=== PATIENT | male | born 1985 | race Caucasian/White ===

== ENCOUNTER 2023-07-08 20:48 | Inpatient (IN) | payer BC ==
[~2023-07-08] VITALS: Ht 175.3 cm; Wt 71.9 kg
[2023-07-08 22:30] VITALS: BP 162/80; PULSE 92; RESP 25
[2023-07-08 22:35] VITALS: O2SAT 100
[2023-07-08 23:13] VITALS: BP 138/88; PULSE 92; RESP 25
[2023-07-08 23:21] LABS: HEMATOCRIT 41.3 % (42-54); IMMATURE GRANULOCYTE ABSOLUTE 0.02 K/uL (0-1); LYMPHOCYTES # (AUTO) 0.4 K/uL (1.0-4.8); LYMPHOCYTES % (AUTO) 9.9 % (21.0-51.0); MEAN CORPUSCULAR HEMOGLOBIN 35.1 pg (27.0-33.0); MEAN CORPUSCULAR HGB CONC 35.6 g/dL (32.0-36.0); MEAN CORPUSCULAR VOLUME 98.6 fL (79-99); MONOCYTES # (AUTO) 0.3 K/uL (0.1-1.0); MONOCYTES % (AUTO) 7.4 % (3.0-13.0); NEUTROPHILS # (AUTO) 3.3 K/uL (1.8-7.7); NEUTROPHILS % (AUTO) 82.2 % (40.0-77.0); PLATELET COUNT (AUTO) 114 K/uL (130-400); RED BLOOD CELL COUNT(AUTO) 4.19 MIL/uL (4.50-6.20); RED CELL DISTRIBUTION WIDTH 12.8 % (11.0-15.5); WHITE BLOOD COUNT (AUTO) 4.1 K/uL (4.8-10.8)
[2023-07-08 23:28] VITALS: BP 149/85; PULSE 94; RESP 30
[2023-07-08] MEDS ORDERED: MANNITOL 20% 500 ML IV.SOLN IV SCH (23:30)
[2023-07-08] MEDS ORDERED: INSULIN REGULAR, HUMAN 3ML 100 UNIT in 0.9%NACL 100ML 100 ML IV SCH ×2 (23:30)
[2023-07-08] MEDS ORDERED: MAGNESIUM 2GM PREMIX 50ML 50 ML IV SCH (23:30)
[2023-07-08] MEDS ORDERED: ACETAMINOPHEN 325 MG TAB PO PRN ×2 (23:30)
[2023-07-08] MEDS ORDERED: ONDANSETRON 4MG INJ IV PRN (23:30)
[2023-07-08] MEDS ORDERED: MORPHINE 4 MG SYG IV PRN (23:30)
[2023-07-08] MEDS ORDERED: 0.9%NACL 1000ML 1,000 ML IV SCH (23:30)
[2023-07-08] MEDS ORDERED: MORPHINE 2 MG SYG IV PRN (23:30)
[2023-07-08 23:34] LABS: HEMOGLOBIN A1C 8.2 % (4.0-6.0)
[2023-07-08 23:39] LABS: WBC MORPHOLOGY CONSISTENT W/DIFF
[2023-07-08 23:47] LABS: ALBUMIN 3.3 g/dL (3.5-5.0); BILIRUBIN,TOTAL 5.4 mg/dL (0.2-1.0); CREATININE 3.3 mg/dL (0.5-1.5); MAGNESIUM 1.9 mg/dL (1.80-2.40); POTASSIUM 4.7 mmol/L (3.5-5.1); TOTAL PROTEIN, SERUM 6.4 g/dL (6.0-8.3)
[2023-07-08 23:51] LABS: INR 0.95 (0.85-1.15); PROTHROMBIN TIME 11.1 SEC (9.6-11.6)
[2023-07-08 23:52] LABS: PARTIAL THROMBOPLASTIN TIME 26.4 SEC (26.3-35.5)
[2023-07-09] VITALS (80 sets, daily range): BP systolic 115–172; BP diastolic 66–146; PULSE 72–112; RESP 12–42; O2SAT 97–100
[2023-07-09] MEDS: D5W-1/2 NS/20MEQ KCL 1,000 ML IV SCH ×2 (00:22→09:33)
[2023-07-09] MEDS: ALBUTEROL 0.083% 2.5 MG/3 ML INH IH ONE ×2 (00:36→00:38)
[2023-07-09] MEDS: ALBUTEROL 0.083% 2.5 MG/3 ML INH IH PRN ×3 (00:37→21:55)
[2023-07-09] MEDS ORDERED: 0.9%NACL 50ML IV SCH (02:00)
[2023-07-09 02:08] LABS: ABG BASE EXCESS -9.2 mmol/L (-2.0-3.0); ABG HCO3 13.8 mmol/L (21.0-28.0); ABG OXYGEN SATURATION 97.1 % (95.0-99.0); ABG PCO2 24 mmHg (35-48); CARBON MONOXIDE 0.5; HHb 2.9; PO2, ARTERIAL BG 92.3 mmHg (83.0-108.0); VENT MODE, BG RA (ROOM AIR)
[2023-07-09] MEDS ORDERED: 0.9%NACL 1000ML 2,121 ML IV ONE (02:30)
[2023-07-09] MEDS ORDERED: SODIUM BICARB 50MEQ 50ML VIAL IV ONE (02:30)
[2023-07-09] MEDS ORDERED: SODIUM BICARB 8.4% 50ML SYRING 0 MEQ in DEXTROSE 5%-WATER 1,000 ML IVP SCH (02:30)
[2023-07-09] MEDS ORDERED: SODIUM BICARB 50MEQ 50ML VIAL 200 ML ONE (02:39)
[2023-07-09] MEDS ORDERED: PHARMACY COMMUNICATION MISC SCH (03:00)
[2023-07-09] MEDS ORDERED: CALCIUM GLUC 1GM 1 GM in 0.9%NACL 100ML 100 ML IV SCH (03:00)
[2023-07-09] MEDS ORDERED: SOD PHOSPHATE 45 MMOL/15 ML VI 15 MMOL in 0.9% NACL 250ML 250 ML IV PRN (03:00)
[2023-07-09] MEDS ORDERED: SODIUM BICARB 8.4% 50ML SYRING 150 MEQ in DEXTROSE 5%-WATER 1,000 ML IV SCH (03:00)
[2023-07-09 03:15] LABS: HEMATOCRIT 34.1 % (42-54); IMMATURE GRANULOCYTE ABSOLUTE 0.04 K/uL (0-1); LYMPHOCYTES # (AUTO) 0.3 K/uL (1.0-4.8); LYMPHOCYTES % (AUTO) 13.7 % (21.0-51.0); MEAN CORPUSCULAR HEMOGLOBIN 35.5 pg (27.0-33.0); MEAN CORPUSCULAR VOLUME 96.1 fL (79-99); MONOCYTES # (AUTO) 0.2 K/uL (0.1-1.0); NEUTROPHILS # (AUTO) 1.6 K/uL (1.8-7.7); NEUTROPHILS % (AUTO) 75.4 % (40.0-77.0); PLATELET COUNT (AUTO) 88 K/uL (130-400); RED BLOOD CELL COUNT(AUTO) 3.55 MIL/uL (4.50-6.20); RED CELL DISTRIBUTION WIDTH 12.6 % (11.0-15.5); WHITE BLOOD COUNT (AUTO) 2.1 K/uL (4.8-10.8)
[2023-07-09 03:28] LABS: CREATININE 3.1 mg/dL (0.5-1.5); POTASSIUM 3.7 mmol/L (3.5-5.1)
[2023-07-09] MEDS: ZOSYN 3.375GM +NS 50ML IVPB SCH ×3 (03:36→18:40)
[2023-07-09 03:58] LABS: BAND NEUTROPHILS % (MANUAL) 11 % (0-2); LYMPHOCYTES % (MANUAL) 8 % (22-44); MAN.DIFF COMMENT-IMPRESSION MANUAL DIFFERENTIAL; MONOCYTES % (MANUAL) 5 % (2-9); PLATELET MORPHOLOGY COMMENT DECREASED; SEGMENTED NEUTROPHILS % 76 % (40-70); TOTAL CELLS COUNTED 100; WBC MORPHOLOGY CONSISTENT W/DIFF
[2023-07-09] MEDS ORDERED: SODIUM BICARB 50MEQ 50ML VIAL 50 ML ONE (04:54)
[2023-07-09 06:58] LABS: ABG BASE EXCESS -1.1 mmol/L (-2.0-3.0); ABG HCO3 21.7 mmol/L (21.0-28.0); ABG OXYGEN SATURATION 96.6 % (95.0-99.0); ABG PCO2 31 mmHg (35-48); CARBON MONOXIDE 0.1; DEVICE COMMENT RR; HHb 3.4; PO2, ARTERIAL BG 87.4 mmHg (83.0-108.0); VENT MODE, BG RA (ROOM AIR)
[2023-07-09 07:29] LABS: CREATININE 2.6 mg/dL (0.5-1.5); POTASSIUM 3.5 mmol/L (3.5-5.1)
[2023-07-09] MEDS ORDERED: HYDROCODONE/ACETAMINOPHEN 5/325 MG TAB PO PRN (09:00)
[2023-07-09] MEDS: ENOXAPARIN SODIUM 40 MG/0.4 ML SYRINGE SQ SCH (09:31)
[2023-07-09] MEDS: AMLODIPINE 5 MG TAB PO SCH (09:32)
[2023-07-09] MEDS: HYDROCODONE/ACETAMINOPHEN 10/325 MG TAB PO PRN ×3 (09:33→21:38)
[2023-07-09] MEDS: FAMOTIDINE 20MG VIAL IV SCH ×2 (09:34→20:08)
[2023-07-09 09:49] LABS: ACETAMINOPHEN 1 mcg/mL (10-29)
[2023-07-09 09:52] LABS: SALICYLATE < 2.8 mg/dL (2.8-20.0)
[2023-07-09] MEDS ORDERED: PROP20TA96 PO (11:04)
[2023-07-09] MEDS ORDERED: MONT-39 PO (11:04)
[2023-07-09] MEDS ORDERED: TRAZ-187 PO (11:04)
[2023-07-09 11:13] LABS: CREATININE 2.3 mg/dL (0.5-1.5); POTASSIUM 3.2 mmol/L (3.5-5.1)
[2023-07-09] MEDS: INSULIN NPH 100 UNIT/ML 3ML SQ SCH ×2 (12:00→16:30)
[2023-07-09] MEDS: BENZOCAINE/MENTH/CETYLPYRD CL 1 EACH LOZENGE MM PRN ×2 (12:17→19:24)
[2023-07-09 12:40] LABS: ADD UA MICROSCOPIC YES
[2023-07-09 12:41] LABS: AMPHET/METH SCREEN,URINE NEGATIVE (NEGATIVE); BARBITURATE SCREEN, URINE NEGATIVE (NEGATIVE); BENZODIAZEPINES SCREEN,URINE NEGATIVE (NEGATIVE); CANNABINOID SCREEN,URINE POSITIVE (NEGATIVE); COCAINE SCREEN,URINE NEGATIVE (NEGATIVE); OPIATE SCREEN,URINE POSITIVE (NEGATIVE); PHENCYCLIDINE SCREEN,URINE NEGATIVE (NEGATIVE)
[2023-07-09 12:50] LABS: APPEARANCE,URINE CLEAR (CLEAR); BACTERIA,URINE RARE /HPF (None Seen); BILIRUBIN,URINE 0.5 mg/dL (NEGATIVE); COLOR,URINE YELLOW (YELLOW); GLUCOSE, URINE (UA) >=1000 mg/dL (NEGATIVE); KETONES,URINE 40 mg/dL (NEGATIVE); LEUKOCYTE ESTERASE ,URINE NEGATIVE Leu/uL (NEGATIVE); MUCUS,URINE RARE LPF (None Seen); NITRATE,URINE NEGATIVE (NEGATIVE); OCCULT BLOOD,URINE MODERATE (NEGATIVE); PROTEIN,URINE 70 mg/dL (NEGATIVE); UROBILINOGEN,URINE 0.2 mg/dL (0.2-1.0)
[2023-07-09] MEDS: POTASSIUM CHLORIDE 10MEQ/100ML 100 ML IV PRN ×2 (12:53→14:53)
[2023-07-09] MEDS: PROPRANOLOL HCL 20 MG TAB PO SCH ×2 (14:53→20:08)
[2023-07-09 14:58] LABS: CREATININE 2.1 mg/dL (0.5-1.5); POTASSIUM 3.2 mmol/L (3.5-5.1)
[2023-07-09 15:08] LABS: ALBUMIN 2.8 g/dL (3.5-5.0); BILIRUBIN,DIRECT 1.1 mg/dL (0.0-0.3); BILIRUBIN,TOTAL 1.8 mg/dL (0.2-1.0); TOTAL PROTEIN, SERUM 5.2 g/dL (6.0-8.3)
[2023-07-09] MEDS ORDERED: POTASSIUM CHLORIDE 20MEQ/100ML 100 ML IV PRN ×2 (15:30)
[2023-07-09] MEDS ORDERED: MAGNESIUM 2GM PREMIX 50ML 50 ML IV PRN (15:30)
[2023-07-09] MEDS: LACTATED RINGERS 1000ML 1,000 ML IV SCH (16:17)
[2023-07-09] MEDS: TRAZODONE HCL 100 MG TABLET PO SCH (16:30)
[2023-07-09] MEDS: KCL 20 MEQ ERTAB PO PRN (16:31)
[2023-07-09] MEDS: GUAIFENESIN-DM 200/20 MG 10 ML PO PRN (20:51)
[2023-07-10] VITALS (32 sets, daily range): BP systolic 126–158; BP diastolic 83–103; PULSE 65–100; RESP 15–22; O2SAT 97–99
[2023-07-10] MEDS: ZOSYN 3.375GM +NS 50ML IVPB SCH ×3 (01:04→17:24)
[2023-07-10] MEDS: GUAIFENESIN-DM 200/20 MG 10 ML PO PRN (01:43)
[2023-07-10] MEDS: HYDROCODONE/ACETAMINOPHEN 10/325 MG TAB PO PRN (03:14)
[2023-07-10] MEDS: LACTATED RINGERS 1000ML 1,000 ML IV SCH ×4 (03:14→18:10)
[2023-07-10 04:50] LABS: EOSINOPHILS # (AUTO) 0.17 K/uL (0.00-0.70); EOSINOPHILS % (AUTO) 7.1 % (0.0-8.0); HEMATOCRIT 32.7 % (42-54); IMMATURE GRANULOCYTE ABSOLUTE 0.01 K/uL (0-1); LYMPHOCYTES # (AUTO) 0.6 K/uL (1.0-4.8); LYMPHOCYTES % (AUTO) 23.7 % (21.0-51.0); MEAN CORPUSCULAR HEMOGLOBIN 35.5 pg (27.0-33.0); MEAN CORPUSCULAR HGB CONC 35.8 g/dL (32.0-36.0); MEAN CORPUSCULAR VOLUME 99.1 fL (79-99); MONOCYTES # (AUTO) 0.3 K/uL (0.1-1.0); MONOCYTES % (AUTO) 11.6 % (3.0-13.0); NEUTROPHILS # (AUTO) 1.4 K/uL (1.8-7.7); NEUTROPHILS % (AUTO) 57.2 % (40.0-77.0); PLATELET COUNT (AUTO) 67 K/uL (130-400); RED CELL DISTRIBUTION WIDTH 13.3 % (11.0-15.5); WHITE BLOOD COUNT (AUTO) 2.4 K/uL (4.8-10.8)
[2023-07-10 04:58] LABS: ALBUMIN 2.7 g/dL (3.5-5.0); BILIRUBIN,TOTAL 1.6 mg/dL (0.2-1.0); CREATININE 1.6 mg/dL (0.5-1.5); MAGNESIUM 1.7 mg/dL (1.80-2.40); PHOSPHORUS 1.9 mg/dL (2.5-4.9); POTASSIUM 3.1 mmol/L (3.5-5.1); TOTAL PROTEIN, SERUM 5.5 g/dL (6.0-8.3)
[2023-07-10] MEDS: KCL 20 MEQ ERTAB PO PRN (06:28)
[2023-07-10] MEDS: INSULIN NPH 100 UNIT/ML 3ML SQ SCH ×2 (06:29→16:30)
[2023-07-10] MEDS: ALBUTEROL 0.083% 2.5 MG/3 ML INH IH PRN (07:01)
[2023-07-10] MEDS: ENOXAPARIN SODIUM 40 MG/0.4 ML SYRINGE SQ SCH (09:00)
[2023-07-10 09:12] LABS: HEPATITIS A ANTIBODY IGM Negative (Negative); HEPATITIS B CORE IGM Negative (Negative); HEPATITIS Bs ANTIGEN SCREEN P Negative (Negative); HEPATITIS C VIRUS ANTIBODY Non Reactive (Non Reactive)
[2023-07-10] MEDS: PROPRANOLOL HCL 20 MG TAB PO SCH ×3 (09:59→20:14)
[2023-07-10] MEDS: FAMOTIDINE 20MG VIAL IV SCH ×2 (09:59→20:14)
[2023-07-10] MEDS ORDERED: 0.9%NACL 1000ML 2,121 ML IV ONE (10:00)
[2023-07-10] MEDS: MONTELUKAST SODIUM 10 MG TAB PO SCH (10:00)
[2023-07-10] MEDS: AMLODIPINE 5 MG TAB PO SCH (10:00)
[2023-07-10 10:26] LABS: CREATININE 1.5 mg/dL (0.5-1.5); POTASSIUM 3.5 mmol/L (3.5-5.1)
[2023-07-10 10:31] LABS: ALBUMIN 3.3 g/dL (3.5-5.0); BILIRUBIN,TOTAL 1.8 mg/dL (0.2-1.0); TOTAL PROTEIN, SERUM 6.6 g/dL (6.0-8.3)
[2023-07-10] MEDS: IPRATROPIUM/ALBUTEROL SULFATE 3 ML SOLUTION IH SCH ×3 (12:01→23:27)
[2023-07-10] MEDS ORDERED: MAGNESIUM 2GM PREMIX 50ML 50 ML IV SCH (15:30)
[2023-07-10] MEDS ORDERED: D5W-1/2 NS/20MEQ KCL 1,000 ML IV SCH (15:30)
[2023-07-10] MEDS ORDERED: 0.9%NACL 1000ML 1,000 ML IV SCH (15:30)
[2023-07-10] MEDS ORDERED: INSULIN REGULAR, HUMAN 3ML 100 UNIT in 0.9%NACL 100ML 100 ML IV SCH ×2 (15:30)
[2023-07-10] MEDS ORDERED: POTASSIUM CHLORIDE 10MEQ/100ML 100 ML IV PRN (15:30)
[2023-07-10] MEDS: 0.9%NACL 1000ML 1,000 ML IV SCH ×6 (15:45→20:35)
[2023-07-10 16:15] LABS: CREATININE 1.3 mg/dL (0.5-1.5); POTASSIUM 3.1 mmol/L (3.5-5.1)
[2023-07-10] MEDS: HYDROMORPHONE 0.5 MG SYG (0.5MG/0.5ML) IVP PRN ×2 (16:18→20:44)
[2023-07-10] MEDS: TRAZODONE HCL 100 MG TABLET PO SCH (17:00)
[2023-07-10] MEDS: DOXYCYCLINE 100MG+NS 250ML IV SCH (18:07)
[2023-07-10] MEDS: BUDESONIDE 0.5 MG/2 ML INH IH SCH (18:54)
[2023-07-10] MEDS: POTASSIUM CHLORIDE 10% ELIXIR 20 MEQ/15 ML UDCUP PO PRN (19:00)
[2023-07-10 19:53] LABS: CREATININE 1.2 mg/dL (0.5-1.5); POTASSIUM 3.7 mmol/L (3.5-5.1)
[2023-07-10 22:42] LABS: CREATININE 1.3 mg/dL (0.5-1.5); POTASSIUM 3.5 mmol/L (3.5-5.1)
[2023-07-11] VITALS (23 sets, daily range): BP systolic 125–159; BP diastolic 77–119; PULSE 72–99; RESP 13–22; O2SAT 96–100
[2023-07-11] MEDS: LACTATED RINGERS 1000ML 1,000 ML IV SCH ×4 (00:50→20:11)
[2023-07-11] MEDS: ZOSYN 3.375GM +NS 50ML IVPB SCH ×3 (01:21→18:19)
[2023-07-11] MEDS: HYDROMORPHONE 0.5 MG SYG (0.5MG/0.5ML) IVP PRN ×4 (01:21→22:24)
[2023-07-11] MEDS: GUAIFENESIN-DM 200/20 MG 10 ML PO PRN ×4 (03:08→20:06)
[2023-07-11] MEDS: DOXYCYCLINE 100MG+NS 250ML IV SCH ×2 (03:59→17:06)
[2023-07-11 04:08] LABS: BASOPHILS # (AUTO) 0.01 K/uL (0.00-0.20); BASOPHILS % (AUTO) 0.4 % (0.0-5.0); HEMATOCRIT 34.3 % (42-54); IMMATURE GRANULOCYTE ABSOLUTE 0.01 K/uL (0-1); LYMPHOCYTES # (AUTO) 0.6 K/uL (1.0-4.8); LYMPHOCYTES % (AUTO) 22.5 % (21.0-51.0); MEAN CORPUSCULAR HEMOGLOBIN 34.7 pg (27.0-33.0); MEAN CORPUSCULAR HGB CONC 34.4 g/dL (32.0-36.0); MEAN CORPUSCULAR VOLUME 100.9 fL (79-99); MONOCYTES # (AUTO) 0.4 K/uL (0.1-1.0); NEUTROPHILS # (AUTO) 1.6 K/uL (1.8-7.7); NEUTROPHILS % (AUTO) 55.7 % (40.0-77.0); PLATELET COUNT (AUTO) 57 K/uL (130-400); WHITE BLOOD COUNT (AUTO) 2.9 K/uL (4.8-10.8)
[2023-07-11 04:21] LABS: ALBUMIN 2.7 g/dL (3.5-5.0); BILIRUBIN,TOTAL 1.7 mg/dL (0.2-1.0); CREATININE 1.1 mg/dL (0.5-1.5); MAGNESIUM 1.7 mg/dL (1.80-2.40); POTASSIUM 3.1 mmol/L (3.5-5.1); TOTAL PROTEIN, SERUM 5.9 g/dL (6.0-8.3)
[2023-07-11] MEDS: POTASSIUM CHLORIDE 10% ELIXIR 20 MEQ/15 ML UDCUP PO PRN ×3 (04:57→15:53)
[2023-07-11 05:15] LABS: EOSINOPHILS % (MANUAL) 5 % (1-6); LYMPHOCYTES % (MANUAL) 37 % (22-44); MONOCYTES % (MANUAL) 6 % (2-9); SEGMENTED NEUTROPHILS % 52 % (40-70); TOTAL CELLS COUNTED 100
[2023-07-11 05:16] LABS: MAN.DIFF COMMENT-IMPRESSION MANUAL DIFFERENTIAL; PLATELET MORPHOLOGY COMMENT DECREASED; WBC MORPHOLOGY NORMAL
[2023-07-11] MEDS: IPRATROPIUM/ALBUTEROL SULFATE 3 ML SOLUTION IH SCH ×5 (06:00→23:40)
[2023-07-11] MEDS: BUDESONIDE 0.5 MG/2 ML INH IH SCH ×3 (06:08→18:24)
[2023-07-11] MEDS: AMLODIPINE 5 MG TAB PO SCH (08:20)
[2023-07-11] MEDS: HYDROCODONE/ACETAMINOPHEN 10/325 MG TAB PO PRN (08:21)
[2023-07-11] MEDS: BENZOCAINE/MENTH/CETYLPYRD CL 1 EACH LOZENGE MM PRN (08:22)
[2023-07-11] MEDS: MONTELUKAST SODIUM 10 MG TAB PO SCH (08:22)
[2023-07-11] MEDS: FAMOTIDINE 20MG VIAL IV SCH ×2 (08:22→20:06)
[2023-07-11] MEDS: PROPRANOLOL HCL 20 MG TAB PO SCH ×3 (08:42→20:06)
[2023-07-11] MEDS: ENOXAPARIN SODIUM 40 MG/0.4 ML SYRINGE SQ SCH (09:00)
[2023-07-11] MEDS: INSULIN NPH 100 UNIT/ML 3ML SQ SCH (09:07)
[2023-07-11 11:11] LABS: CREATININE 1.1 mg/dL (0.5-1.5); POTASSIUM 3.8 mmol/L (3.5-5.1)
[2023-07-11] MEDS ORDERED: MAGNESIUM 2GM PREMIX 50ML 50 ML IV PRN (12:00)
[2023-07-11] MEDS: 0.9%NACL 1000ML 1,000 ML IV SCH ×3 (12:25→21:00)
[2023-07-11] MEDS: INSULIN HUMULIN R 100 UNIT/ML 3ML SQ SCH ×2 (16:30→20:59)
[2023-07-11] MEDS: TRAZODONE HCL 100 MG TABLET PO SCH (17:06)
[2023-07-12] MEDS: ZOSYN 3.375GM +NS 50ML IVPB SCH (02:53)
[2023-07-12] MEDS: 0.9%NACL 1000ML 1,000 ML IV SCH (02:58)
[2023-07-12] MEDS: LACTATED RINGERS 1000ML 1,000 ML IV SCH (02:58)
[2023-07-12] MEDS: GUAIFENESIN-DM 200/20 MG 10 ML PO PRN (03:45)
[2023-07-12] MEDS: HYDROMORPHONE 0.5 MG SYG (0.5MG/0.5ML) IVP PRN ×2 (03:46→09:58)
[2023-07-12 03:49] VITALS: BP 116/95; PULSE 87; RESP 20
[2023-07-12] MEDS: DOXYCYCLINE 100MG+NS 250ML IV SCH (05:25)
[2023-07-12] MEDS: INSULIN HUMULIN R 100 UNIT/ML 3ML SQ SCH (05:47)
[2023-07-12 06:07] LABS: BASOPHILS # (AUTO) 0.01 K/uL (0.00-0.20); BASOPHILS % (AUTO) 0.3 % (0.0-5.0); EOSINOPHILS # (AUTO) 0.17 K/uL (0.00-0.70); EOSINOPHILS % (AUTO) 5.5 % (0.0-8.0); HEMATOCRIT 35.4 % (42-54); IMMATURE GRANULOCYTE ABSOLUTE 0.05 K/uL (0-1); LYMPHOCYTES # (AUTO) 0.9 K/uL (1.0-4.8); LYMPHOCYTES % (AUTO) 27.3 % (21.0-51.0); MEAN CORPUSCULAR HEMOGLOBIN 35.5 pg (27.0-33.0); MEAN CORPUSCULAR VOLUME 101.4 fL (79-99); MONOCYTES # (AUTO) 0.5 K/uL (0.1-1.0); MONOCYTES % (AUTO) 16.4 % (3.0-13.0); NEUTROPHILS # (AUTO) 1.5 K/uL (1.8-7.7); NEUTROPHILS % (AUTO) 48.9 % (40.0-77.0); PLATELET COUNT (AUTO) 72 K/uL (130-400); RED BLOOD CELL COUNT(AUTO) 3.49 MIL/uL (4.50-6.20); RED CELL DISTRIBUTION WIDTH 12.9 % (11.0-15.5); WHITE BLOOD COUNT (AUTO) 3.1 K/uL (4.8-10.8)
[2023-07-12 06:29] LABS: ALBUMIN 2.7 g/dL (3.5-5.0); BILIRUBIN,TOTAL 1.4 mg/dL (0.2-1.0); CREATININE 0.9 mg/dL (0.5-1.5); POTASSIUM 3.2 mmol/L (3.5-5.1); TOTAL PROTEIN, SERUM 5.8 g/dL (6.0-8.3)
[2023-07-12 06:58] VITALS: PULSE 80; RESP 18
[2023-07-12] MEDS: IPRATROPIUM/ALBUTEROL SULFATE 3 ML SOLUTION IH SCH (06:58)
[2023-07-12] MEDS: BUDESONIDE 0.5 MG/2 ML INH IH SCH (06:58)
[2023-07-12 07:02] VITALS: PULSE 79; RESP 18; O2SAT 100
[2023-07-12] MEDS ORDERED: KCL 20 MEQ ERTAB PO ONE ×2 (07:30→09:00)
[2023-07-12 08:00] VITALS: BP 154/102; PULSE 88; RESP 18; O2SAT 98
[2023-07-12] MEDS ORDERED: AMLO5TAB4 PO (09:17)
[2023-07-12] MEDS ORDERED: INSU200I SQ (09:17)
[2023-07-12] MEDS ORDERED: INSU3INS3 SQ (09:18)
[2023-07-12] MEDS ORDERED: MAGNESIUM 2GM PREMIX 50ML 50 ML IV SCH (09:30)
[2023-07-12] MEDS: MONTELUKAST SODIUM 10 MG TAB PO SCH (09:47)
[2023-07-12] MEDS: FAMOTIDINE 20MG VIAL IV SCH (09:51)
[2023-07-12 10:27] VITALS: O2SAT 96
== END 2023-07-12 12:55 | disposition home or self-care (01) | DRG 871 ==
LOC: 2BH 21:58 → 3CH 07-09 18:12 → 2CH 07-10 15:16 → 3AH 07-11 19:40
PROVIDERS: ADMIT Internal Medicine; ATTEND Internal Medicine
DX: A41.9 Sepsis, unspecified organism (principal); E11.10 Type 2 diabetes mellitus with ketoacidosis without coma; K85.90 Acute pancreatitis without necrosis or infection, unspecified; N17.0 Acute kidney failure with tubular necrosis; E87.1 Hypo-osmolality and hyponatremia; R65.20 Severe sepsis without septic shock; E11.43 Type 2 diabetes mellitus with diabetic autonomic (poly)neuropathy; J45.909 Unspecified asthma, uncomplicated; K31.84 Gastroparesis; E83.39 Other disorders of phosphorus metabolism; E83.51 Hypocalcemia; F17.210 Nicotine dependence, cigarettes, uncomplicated; J02.9 Acute pharyngitis, unspecified; N18.9 Chronic kidney disease, unspecified; I12.9 Hypertensive chronic kidney disease with stage 1 through stage 4 chronic kidney disease, or unspecified chronic kidney disease; Z79.899 Other long term (current) drug therapy; Z79.84 Long term (current) use of oral hypoglycemic drugs
CPT/HCPCS: 36415; 36600; 70490; 71045; 76700; 80048; 80053; 80061; 80076; 80305; 81001; 82010; 82140; 82435; 82803; 82947; 82948; 83036; 83605; 83690; 83735; 83880; 84100; 84132; 84145; 84295; 85018; 85025; 85610; 85730; 86701; 86705; 86709; 86850; 86900; 86901; 87040; 87088; 87340; 87390; 87880; 92610; 94640; 94664; G0378; G0481; J0610; J1170; J1650; J1815; J2270; J2543; J3475; J3480; J3490; J7070; J7120